=== PATIENT | male | born 1965 | race Caucasian/White ===

== ENCOUNTER → 2016-06-03 | Outpatient (CLI) | payer OTHER ==
[2016-06-03 10:19] LABS: Basophils % (A) 0 %; CH 30.8; CHCM 33.6; Eosinophils # (A) 0.2 k/uL (0-0.7); Eosinophils % (A) 4 %; HCT 42.9 % (39.0-53.0); HDW 2.51; HGB 14.3 gm/dL (13.0-17.5); Luc # (Auto) 0.15; Luc % (Auto) 3; Lymphocytes # (A) 1.5 k/uL (1.0-4.8); Lymphocytes % (A) 31 %; MCH 30.8 pg (25.0-35.0); MCHC 33.4 g/dL (31.0-37.0); MCV 92.2 fL (80.0-100.0); Mean Platelet Volume 7.3; Monocytes # (A) 0.3 k/uL (0-1.0); Monocytes % (A) 6 %; Neutrophils # (A) 2.8 k/uL (1.3-7.7); Neutrophils % (A) 56 %; RBC 4.66 m/uL (4.30-5.90); WBC 4.9 k/uL (3.8-10.6); WBC (Perox) 5.14
[2016-06-03 10:43] LABS: Anion Gap 10 mmol/L; Blood Urea Nitrogen 23 mg/dL (9-20); Calcium 9.5 mg/dL (8.4-10.2); Carbon Dioxide 29 mmol/L (22-30); Chloride 102 mmol/L (98-107); Glucose 104 mg/dL (74-99); Non-African American GFR(MDRD) >60 (>60 ml/min/1.73 sqM); Potassium 4.3 mmol/L (3.5-5.1); Sodium 141 mmol/L (137-145)
== END | disposition home or self-care (01) ==
LOC: LABPAT 09:33
PROVIDERS: ATTEND Urology
DX: Z01.812 Encounter for preprocedural laboratory examination (principal); R35.0 Frequency of micturition; R56.9 Unspecified convulsions; R53.83 Other fatigue; Z79.899 Other long term (current) drug therapy
CPT/HCPCS: 80048; 85025; 87086

== ENCOUNTER 2016-06-10 06:00 | Day surgery (SDC) | payer OTHER ==
[2016-06-07 12:22] VITALS: BMI 28.1
[~2016-06-10 06:00] MED LIST: DEXAMETHASONE SOD PHOSPHATE 10 MG/ML 1 ML VIAL IV ONE; GENTAMICIN 120 MG in SODIUM CHLORIDE 0.9% 100 ML IVPB ONE; MIDAZOLAM 2 MG/2 ML VIAL IV PRN; ONDANSETRON 4 MG/2 ML VIAL IVP ONE; ceFAZolin 2 GM in SODIUM CHLORIDE 0.9% 100 ML IVPB ONE
[2016-06-10] MEDS ORDERED: LIDOCAINE 1% 20 ML VIAL (10MG/ML) FOR IV START INTRADERMA ONE (06:28)
[2016-06-10] MEDS: LACTATED RINGERS 1,000 ML IV SCH ×2 (06:28→07:39)
[2016-06-10] MEDS ORDERED: PROPOFOL 10 MG/ML 20 ML VIAL IV ONE (07:42)
[2016-06-10] MEDS ORDERED: MIDAZOLAM 2 MG/2 ML VIAL ONE (07:42)
[2016-06-10] MEDS ORDERED: LIDOCAINE 1% INJ 10MG/ML (20 ML MDV) ONE (07:42)
[2016-06-10] MEDS ORDERED: fentaNYL (PF) 50 MCG/ML 2 ML AMP ONE (07:42)
--- NOTE | 2016-06-10 08:16 | P.OP ---
Date of Procedure: 06/10/16 Preoperative Diagnosis: Bladder Calculi Postoperative Diagnosis: Same Procedure(s) Performed: Cystoscopy with Removal of Bladder Calculi. Anesthesia: THAIA Surgeon: Edwin Guerra Estimated Blood Loss (ml): 0 IV fluids (ml): 400 Pathology: other (calculus fragments) Condition: stable Disposition: PACU Indications for Procedure: He is a 51-year-old male who underwent endoscopic removal of a bladder calculus in July 2015. He continues to report obstructive voiding symptoms. ERASMO revealed the prostate to be mildly enlarged but smooth. Bladder emptying is adequate. He is on Tamsulosin for his BPH symptoms. CT 05/03/2016 showed a bladder calculus, 2.1 cm. He is set up for cystolithopaxy 06/10/2016. Operative Findings: Multiple small bladder calculi. High, obstructing vesical neck. Description of Procedure: The patient was taken to the operating room and placed in the dorsal lithotomy position, with legs supported in Guanaco stirrups. The external genitalia was prepped and draped sterilely. The 30 lens was used to introduce the 19-Qatari Stortz cystoscopic sheath through the urethra and into the bladder under direct vision. The urethra appeared normal. The prostate showed evidence of mild lateral lobe enlargement. The vesical neck was high and obstructing, making entry into the bladder difficult. The bladder was examined in its entirety. The ureteral orifices appeared normal. Multiple small calculi were seen. No tumors were seen. No diverticuli were seen. The beak of the cystoscope was advanced to the calculi, and were removed from the bladder as the bladder drained. This was done multiple times, until all calculi were removed. Once this was completed, the bladder was inspected. There was no active bleeding, and no evidence of bladder perforation. A 16-Qatari Cain catheter was placed. The return was essentially clear. The patient tolerated the procedure well was taken to the recovery room in stable condition.
[2016-06-10 08:19] VITALS: TEMP 97.7
[2016-06-10] MEDS: HYDROmorphone 1 MG/ML 1 ML SYRINGE IVP PRN ×2 (08:40→08:41)
[2016-06-10 10:43] VITALS: BP 112/74; PULSE 76; RESP 18
== END 2016-06-10 10:26 | disposition home or self-care (01) ==
LOC: OR 06:00
PROVIDERS: ATTEND Urology
DX: N21.0 Calculus in bladder (principal); N40.1 Benign prostatic hyperplasia with lower urinary tract symptoms; N13.8 Other obstructive and reflux uropathy; R56.9 Unspecified convulsions; J30.2 Other seasonal allergic rhinitis; Z79.899 Other long term (current) drug therapy
CPT/HCPCS: 52310; J2250; J1100; J0690; J2405; J2001; J3010; J1580; J1170; J2704; 82365

== ENCOUNTER → 2016-07-08 | Outpatient (CLI) | payer OTHER ==
--- NOTE | 2016-07-08 18:30 | XR ---
EXAMINATION TYPE: XR lumbar spine with bend/flex DATE OF EXAM: 07/08/2016 5:00 PM COMPARISON: NONE HISTORY: Back pain TECHNIQUE: 7 views FINDINGS: There is 5 mm anterior subluxation of L4 in relation L5. There is some narrowing of lumbar disc spaces. There is no compression fracture. Posterior elements are intact. Sacroiliac joints appea r intact. IMPRESSION: Multilevel spondylosis. Degenerative first degree mild L4-5 spondylolisthesis.
== END ==
LOC: RADXRMAIN 16:34
PROVIDERS: ATTEND Psychiatry & Neurology Pain Medicine
DX: M43.16 Spondylolisthesis, lumbar region (principal); M47.816 Spondylosis without myelopathy or radiculopathy, lumbar region
CPT/HCPCS: 72114

== ENCOUNTER → 2016-08-06 | Outpatient (CLI) | payer OTHER | END | disposition home or self-care (01) | LOC: LABWHC1 10:38 | PROVIDERS: ATTEND Psychiatry & Neurology Neurology | DX: R56.9 Unspecified convulsions (principal) | CPT/HCPCS: 36415; 80175 ==

== ENCOUNTER → 2016-08-21 | Outpatient (CLI) | payer OTHER ==
--- NOTE | 2016-08-21 09:25 | MR ---
EXAMINATION TYPE: MR lumbar spine wo con DATE OF EXAM: 08/21/2016 COMPARISON: Plain film 08 July 2016 HISTORY: LUMBAGO TECHNIQUE: Multiplanar, multisequence images of the lumbar spine were acquired. L1-L2: Posterior broad-based disc bulge causes slight anterior mass effect on the thecal sac. No sign ificant foraminal encroachment or central stenosis. L2-L3: Broad-based disc bulge causes minimal anterior mass effect on the thecal sac. Hypertrophy of l igamentum flavum encroaches mildly on the lateral recesses, circumferential extension of endplate dis c complex encroaches on the neural foramina. No significant central stenosis. L3-L4: Broad-based posterior disc bulge causes anterior mass effect on the thecal sac, circumferentia l extension of endplate disc complex, minimal anterolisthesis grade 1 L3-4 results in some mild centr al stenosis. Facet arthropathy with hypertrophy of the ligamentum flavum encroaches somewhat on the l ateral recesses. L4-L5: Anterolisthesis contributes with facet arthropathy with hypertrophy of the ligamentum flavum 2 cause moderate to severe central canal stenosis, bilateral foraminal encroachment. Minimal posterior disc bulge causes slight anterior mass effect on the thecal sac. L5-S1: There is some facet arthropathy change present. No significant foraminal encroachment or centr al stenosis. No disc herniation. Lumbar segments are intact. No paraspinal masses are identified. Conus medullaris has a normal appe arance. Anterolisthesis grade 1 L4-5, L3-4. Partial sacralization of L5 is noted. Loss of disc height and signal at the intervertebral levels L4-5, L3-4 and L2-3 compatible with disc desiccation and deg enerative disc disease. There is multilevel spondylosis, endplate discogenic marrow signal change. Sc hmorl's nodes present inferior endplate of L4 and L3. Oval area of increased signal in T12 compatible with hemangioma. The conus is at T12 and shows an unremarkable appearance. IMPRESSION: Degenerative disc disease, facet arthropathy, listhesis as described, spinal stenosis greatest at L4- 5. Correlate with plain film prior to any intervention.
== END | disposition home or self-care (01) ==
LOC: RADMRIMAIN 08:26
PROVIDERS: ATTEND Psychiatry & Neurology Pain Medicine
DX: M48.06 Spinal stenosis, lumbar region (principal); M51.36 Other intervertebral disc degeneration, lumbar region; M46.06 Spinal enthesopathy, lumbar region
CPT/HCPCS: 72148